=== PATIENT | male | born 1960 | race Caucasian/White ===

== ENCOUNTER 2018-04-22 20:57 | Emergency (ER) | payer OTHER, BC, SELFPAY ==
[2018-04-22 21:29] VITALS: BP 134/84; PULSE 50; RESP 14; TEMP 35.6; O2SAT 100; BMI 20.2
--- NOTE | 2018-04-22 21:34 | DI.RAD.S_ITS ---
PROCEDURE: XR HAND LT MIN 3V INDICATIONS: left hand pain/swelling TECHNIQUE: 3 views of the hand(s) acquired. COMPARISON: None. FINDINGS: Bones: No fractures or dislocations. Carpal bones are normally aligned. No suspicious bony lesions. Mild first CMC joint degeneration. Soft tissues: No suspicious soft tissue calcifications. IMPRESSION: No fracture identified. Mild first CMC joint degeneration. Dictated by: Praveen Sandy M.D. on 04/23/2018 at 10:30 Approved by: Praveen Sandy M.D. on 04/23/2018 at 10:31
[2018-04-22 23:27] VITALS: BP 112/56; PULSE 48; RESP 12; O2SAT 99
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
[2018-04-23] MEDS: HYDROCODONE/ACET 5/325 PREPACK 1 BOTTLE MISC (00:20)
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
== END 2018-04-23 00:26 | disposition home or self-care (01) ==
PROVIDERS: Emergency Provider Emergency Medicine; PCP Internal Medicine
DX: S60.222A Contusion of left hand, initial encounter (principal); V49.40XA Driver injured in collision with unspecified motor vehicles in traffic accident, initial encounter
CPT/HCPCS: 73130; 99283

== ENCOUNTER → 2023-05-04 10:16 | Outpatient (CLI) | payer OTHER, SELFPAY ==
--- NOTE | 2023-05-04 | DI.RAD.S_ITS ---
PROCEDURE: XR WRIST RT MIN 3V INDICATIONS: right wrist pain post fall TECHNIQUE: 4 views of the wrist were acquired. COMPARISON: None. FINDINGS: Bones: No fractures or dislocations. No suspicious bony lesions. Mild osteoarthritic changes at the triscaphe joint and the 1st carpometacarpal joint. Scaphoid view: Scaphoid appears intact. Soft tissues: No suspicious soft tissue calcifications. IMPRESSION: 1. No acute osseous abnormality. If clinical symptoms persist or clinical suspicion for pathology is high, a repeat examination in 7-10 days, or advanced imaging such as CT or MRI is suggested for further evaluation. Dictated by: Jayant Milton M.D. on 05/04/2023 at 13:23 Approved by: Jayant Milton M.D. on 05/04/2023 at 13:25
== END ==
PROVIDERS: PCP Registered Nurse; Referring Provider Registered Nurse; Visit Provider Registered Nurse
DX: M25.531 Pain in right wrist (principal)
CPT/HCPCS: 73110

== ENCOUNTER → 2025-08-01 10:44 | Outpatient (CLI) | payer OTHER, SELFPAY ==
--- NOTE | 2025-08-01 10:46 | DI.RAD.S_ITS ---
PROCEDURE: XR SHOULDER RT MIN 2V INDICATIONS: PAIN TECHNIQUE: 4 views of the shoulder were acquired. COMPARISON: [facility], CR, XR SHOULDER LT 2+ VIEWS, 08/01/2025, 9:52. FINDINGS: Bones: No fractures or dislocations. No suspicious bony lesions. Visualized ribs appear intact. Moderate narrowing of the acromioclavicular joint. Soft tissues: No suspicious soft tissue calcifications. IMPRESSION: 1. No acute bony abnormality. 2. Mild acromioclavicular joint degeneration. If there is high concern for further derangement, consider MRI evaluation. Dictated by: Nacho Jhaveri [facility] Interpreted: Rob Mejía MD on 08/01/2025 at 11:10 Transcribed by: MONIKA on 08/01/2025 at 11:12 Approved by: Rob Mejía M.D. on 08/01/2025 at 14:06
--- NOTE | 2025-08-01 10:46 | DI.RAD.S_ITS ---
PROCEDURE: XR SHOULDER LT MIN 2V INDICATIONS: PAIN TECHNIQUE: 4 views of the shoulder were acquired. COMPARISON: None. FINDINGS: Bones: No fractures or dislocations. No suspicious bony lesions. Visualized ribs appear intact. Joint space narrowing of the acromioclavicular joint. Soft tissues: No suspicious soft tissue calcifications. IMPRESSION: 1. No acute bony abnormality. 2. Mild acromioclavicular joint degeneration. If there is high concern for further derangement, consider MRI evaluation. Dictated by: Nacho Jhaveri [facility] Interpreted: Rob Mejía MD on 08/01/2025 at 11:08 Transcribed by: MONIKA on 08/01/2025 at 11:10 Approved by: Rob Mejía M.D. on 08/01/2025 at 14:05
== END ==
LOC: RAD 10:45
PROVIDERS: PCP Registered Nurse; Referring Provider Registered Nurse; Visit Provider Registered Nurse
DX: M19.012 Primary osteoarthritis, left shoulder (principal); M19.011 Primary osteoarthritis, right shoulder; M25.511 Pain in right shoulder; M25.512 Pain in left shoulder
CPT/HCPCS: 73030